=== PATIENT | female | born 1985 | race Two or more races ===

== ENCOUNTER 2023-01-19 13:43 | Inpatient (IN) | payer OTHER ==
[~2023-01-19] VITALS: Ht 160 cm; Wt 62.6 kg
[2023-01-19] MEDS ORDERED: TORADOL60 MG (14:55)
[2023-01-19] MEDS ORDERED: CLINDAMYCI300 MG/51 (14:57)
[2023-01-21] MEDS ORDERED: ATIVAN1 M1 PO (13:34)
== END 2023-01-21 13:59 | disposition home or self-care (01) | DRG 812 ==
LOC: ER 13:43 → MEDI 19:18
PROVIDERS: ADMIT Internal Medicine Hematology & Oncology; ATTEND Internal Medicine Hematology & Oncology
PROC: 30233N1 Transfusion of Nonautologous Red Blood Cells into Peripheral Vein, Percutaneous Approach (ICD-10-PCS; principal; 2023-01-20)
DX: D50.0 Iron deficiency anemia secondary to blood loss (chronic) (principal); Z98.890 Other specified postprocedural states; Z20.822 Contact with and (suspected) exposure to COVID-19

== ENCOUNTER 2024-12-12 17:19 | Emergency (ER) | payer OTHER ==
[~2024-12-12] VITALS: Ht 157.5 cm; Wt 59.0 kg
[~2024-12-12 17:19] MED LIST: ATIVAN1 M1 PO; CLINDAMYCI300 MG/51; TORADOL60 MG
[2024-12-12] MEDS ORDERED: IRON325 MG (17:52)
[2024-12-12 19:36] LABS: BASO % 0.9 % (0.1-1.2); EOS # 0.03 (0.04-0.54); EOS % 0.4 % (0.7-7.0); LYMPH # 1.36 (1.18-3.74); LYMPH % 17.8 % (19.3-53.1); MEAN PLATELET VOLUME 10.40 fl (9.4-12.4); MONO # 0.73 (0.24-0.82); MONO % 9.5 % (4.7-12.5); NEUT # 5.44 (1.56-6.13); NEUT % 71.0 % (34.0-71.1); RED CELL DISTRIBUTION WIDTH 23.0 % (11.6-14.4)
[2024-12-12 19:58] LABS: INR 1.05
[2024-12-12 20:02] LABS: ALT/SGPT 28.0 U/L (12-78); AST/SGOT 16.0 U/L (15-37); BILIRUBIN TOTAL 0.99 mg/dL (0.3-1.2); BUN CREA RATIO 47.0 (7.0-25.0); CREATININE SERUM 0.58 mg/dL (0.55-1.02); GFR 115.14; GLOBULINA 3.8 G/DL (2.4-3.5); GLUCOSE FASTING 93.0 mg/dL (65-100); OSMOLALITY SERUM 286.0 MOSM/KG (275-295)
== END 2024-12-12 21:10 | disposition home or self-care (01) ==
LOC: ER 17:19
PROVIDERS: General Practice
DX: Z86.2 Personal history of diseases of the blood and blood-forming organs and certain disorders involving the immune mechanism (principal); R53.83 Other fatigue; D64.9 Anemia, unspecified; Z88.0 Allergy status to penicillin